=== PATIENT | female | born 1985 | race Caucasian/White ===

== ENCOUNTER → 2016-09-27 | Outpatient (REF) ==
--- NOTE | 2016-09-27 10:36 | DI ---
EXAM: PA and lateral views of the chest HISTORY: Pre employment screening COMPARISON: Chest x-ray 11/04/2013 FINDINGS: The cardiomediastinal silhouette is normal. There is no pneumothorax or pleural effusion . There is no consolidation, nodule or mass. The osseous structures are unremarkable. IMPRESSION: No acute cardiopulmonary process
== END ==
LOC: RAD 10:13
DX: Z02.89 Encounter for other administrative examinations (principal)